=== PATIENT | male | born 1985 | race Caucasian/White ===

== ENCOUNTER 2017-01-26 08:04 | Emergency (ER) | payer MEDICAID ==
[~2017-01-26] VITALS: Ht 172.7 cm; Wt 63.5 kg
[2017-01-26 08:37] LABS: Basophils # (auto) 0 uL; Basophils % (auto) 0.6 % (0.0-2.0); Eosinophils # (auto) 0.1 uL; Eosinophils % (auto) 1.4 % (0.0-7.0); Hematocrit 40.9 % (41.0-53.0); Hemoglobin 13.3 g/dL (13.5-17.5); Lymphocytes # (auto) 0.9 uL; Mean Corpuscular Hemoglobin 28.6 pg (28.0-32.0); Mean Corpuscular Hgb Conc. 32.5 g/dL (32.0-36.0); Mean Platelet Volume 8.9 fL (7.4-10.4); Monocytes # (auto) 0.3 uL; Monocytes % (auto) 4.9 % (0.0-12.0); Neutrophils # (auto) 5.2 uL; Neutrophils % (auto) 80.1 % (37.0-80.0); Platelet Count (auto) 307 10^3/uL (140-450); Red Cell Distribution Width 13.3 % (11.6-16.0); White Blood Cell 6.6 10^3/uL (4.4-10.8)
[2017-01-26 09:01] LABS: Albumin 3.8 g/dL (3.4-5.0); BUN/Creatinine Ratio 9.4; Bilirubin, Total 0.3 mg/dL (0.2-1.0); Calcium 9.3 mg/dL (8.5-10.1); Potassium 4.2 mmol/L (3.5-5.1); Total Protein 7.8 g/dL (6.4-8.2)
[2017-01-26] MEDS ORDERED: PHENYTOIN SODIUM 100 MG CAP PO ONE (09:15)
[2017-01-26] MEDS ORDERED: LORazepam 2MG/ML-1ML VIAL IV ONE (09:15)
[2017-01-26] MEDS ORDERED: PHENYTOIN IV DILANTIN 500 MG in SODIUM CHL 0.9% 100 ML IV ONE (09:15)
[2017-01-26 09:29] LABS: Urine RBC None Seen /hpf (0 - 3)
[2017-01-26 09:46] LABS: Urine Bilirubin Negative (Negative); Urine Blood Negative /uL (Negative); Urine Color Yellow (Yellow); Urine Glucose Normal (Normal); Urine Nitrite Negative (Negative); Urine Squamous Epithelial Cell FEW /hpf (<5); Urine Urobilinogen Normal (Negative); Urine pH 5.5 (5.0-8.0)
[2017-01-26 10:48] LABS: Urine Ketone 1+ (Negative)
[2017-01-26 10:50] VITALS: BP 114/66
== END 2017-01-26 10:51 | disposition home or self-care (01) ==
LOC: ER 08:04 → EDBD 08:04 → ER 10:51
DX: G40.909 Epilepsy, unspecified, not intractable, without status epilepticus (principal); R51 Headache; F12.10 Cannabis abuse, uncomplicated
CPT/HCPCS: 36415; 80053; 81001; 85025; 94761; 96365; 96375; 99284; G0434; J1165; J2060; J7050